=== PATIENT | female | born 1990 | race African-American/Black ===

== ENCOUNTER 2022-12-31 04:37 | Day surgery (SDC) | payer OTHER ==
[2022-12-29 15:42] VITALS: BMI 25.0
[2022-12-31] MEDS ORDERED: GENTAMICIN SO4 80 MG/2 ML VIAL ONE (14:01)
[2022-12-31] MEDS ORDERED: LIDOCAINE HCL 1%, 10 MG/ML (20ML VIAL) ONE ×2 (14:01→16:23)
[2022-12-31] MEDS ORDERED: DEXAMETHASONE SOD PHOSPHATE 4 MG/1 ML VIAL ONE ×2 (14:03→16:10)
[2022-12-31] MEDS ORDERED: PROPOFOL 20 ML ONE ×3 (15:43→16:23)
[2022-12-31] MEDS ORDERED: MIDAZOLAM HCL 2 MG/2 ML SINGLE DOSE VIAL ONE (15:43)
[2022-12-31] MEDS ORDERED: ceFAZolin SODIUM 1 GM VIAL IVPB ONE (16:03)
[2022-12-31] MEDS ORDERED: ceFAZolin SODIUM 1 GM VIAL ONE ×2 (16:03)
[2022-12-31] MEDS ORDERED: ONDANSETRON 4 MG/2 ML VIAL ONE (16:10)
[2022-12-31] MEDS ORDERED: LIDOCAINE HCL 1%, 10 MG/ML (20ML VIAL) INF ONE (17:08)
[2022-12-31] MEDS ORDERED: BUPIVACAINE HCL/PF 0.5% (5MG/ML) 10 ML VIAL IJ ONE (17:08)
[2022-12-31] MEDS ORDERED: ACETAMINOPHEN 1000 MG/100 ML BAG IVPB ONE (17:13)
[2022-12-31] MEDS ORDERED: oxyCODONE HCL 5 MG TABLET PO PRN ×2 (17:13→18:57)
[2022-12-31] MEDS ORDERED: ACETAMINOPHEN 325 MG TABLET (FP) PO PRN (17:13)
[2022-12-31] MEDS ORDERED: ONDANSETRON 4 MG/2 ML VIAL IVPUSH PRN (17:13)
[2022-12-31] MEDS ORDERED: LACTATED RINGERS SOLUTION 1,000 ML IV SCH (17:15)
[2022-12-31] MEDS ORDERED: oxyCODONE HCL 5 MG TABLET ONE (19:01)
[2022-12-31 19:08] VITALS: RESP 18
[2022-12-31 19:35] VITALS: BP 126/78; PULSE 80; TEMP 98.7
== END 2022-12-31 19:25 | disposition home or self-care (01) ==
LOC: JASU-SURG 04:37
PROVIDERS: ATTEND Podiatrist Foot & Ankle Surgery
PROC: 0SRP0JZ Replacement of Right Toe Phalangeal Joint with Synthetic Substitute, Open Approach (ICD-10-PCS; 2022-12-31)
PROC: 0SRQ0JZ Replacement of Left Toe Phalangeal Joint with Synthetic Substitute, Open Approach (ICD-10-PCS; principal; 2022-12-31 15:00)
DX: M20.42 Other hammer toe(s) (acquired), left foot (principal); M20.41 Other hammer toe(s) (acquired), right foot
CPT/HCPCS: 76000-TC-FY; 81025; 88305-TC; 88311-TC; 94760

== ENCOUNTER 2023-01-28 13:24 | Day surgery (SDC) | payer OTHER ==
[2023-01-26 16:58] VITALS: BMI 25.0
[2023-01-28] MEDS ORDERED: LIDOCAINE HCL 1%, 10 MG/ML (20ML VIAL) ONE (14:02)
[2023-01-28] MEDS ORDERED: BUPIVACAINE HCL/PF 0.25% (2.5MG/ML) 10 ML VIAL ONE (14:02)
[2023-01-28] MEDS ORDERED: LIDOCAINE HCL 2% (20ML MULTI-DOSE VIAL) ONE (14:02)
[2023-01-28] MEDS ORDERED: BUPIVACAINE HCL/PF 2.5 MG/ML - 30 ML VIAL IJ ONE (14:03)
[2023-01-28] MEDS ORDERED: MIDAZOLAM HCL 2 MG/2 ML SINGLE DOSE VIAL ONE (14:26)
[2023-01-28] MEDS ORDERED: PROPOFOL 60 ML ONE (14:40)
[2023-01-28] MEDS ORDERED: SODIUM CHLORIDE 0.9% P/F 10 ML VIAL IJ ONE (14:41)
[2023-01-28] MEDS ORDERED: ceFAZolin SODIUM 1 GM VIAL ONE (14:41)
[2023-01-28] MEDS ORDERED: LIDOCAINE HCL/PF 2% SDV 5ML VIAL ONE (14:41)
[2023-01-28] MEDS ORDERED: ONDANSETRON 4 MG/2 ML VIAL ONE ×2 (14:49→16:20)
[2023-01-28] MEDS ORDERED: DEXAMETHASONE SOD PHOSPHATE 4 MG/1 ML VIAL ONE (14:49)
[2023-01-28] MEDS ORDERED: KETOROLAC TROMETHAMINE 30 MG/1 ML VIAL ONE (14:49)
[2023-01-28] MEDS ORDERED: ACETAMINOPHEN INJECTION 100 ML IVPB ONE (15:12)
[2023-01-28] MEDS ORDERED: PROPOFOL 20 ML ONE (15:39)
[2023-01-28] MEDS ORDERED: oxyCODONE HCL 5 MG TABLET PO PRN (16:07)
[2023-01-28] MEDS ORDERED: PROMETHAZINE HCL 25 MG/1 ML VIAL IVPB PRN (16:07)
[2023-01-28] MEDS ORDERED: ONDANSETRON 4 MG/2 ML VIAL IVPUSH PRN (16:07)
[2023-01-28] MEDS ORDERED: LACTATED RINGERS SOLUTION 1,000 ML IV SCH (16:15)
[2023-01-28] MEDS ORDERED: FENTANYL CITRATE/PF 50 MCG/ML VIAL ONE (16:19)
[2023-01-28 16:43] VITALS: PULSE 69; RESP 19
[2023-01-28 17:15] VITALS: BP 99/66; TEMP 97.4
== END 2023-01-28 18:17 | disposition home or self-care (01) ==
LOC: FASU 13:24
PROVIDERS: ATTEND Podiatrist Foot & Ankle Surgery
PROC: 0QSN04Z Reposition Right Metatarsal with Internal Fixation Device, Open Approach (ICD-10-PCS; 2023-01-28)
PROC: 0QSP04Z Reposition Left Metatarsal with Internal Fixation Device, Open Approach (ICD-10-PCS; principal; 2023-01-28 14:58)
DX: M20.11 Hallux valgus (acquired), right foot (principal); M20.12 Hallux valgus (acquired), left foot
CPT/HCPCS: 28299; C1713; 73630-TC-LT; 73630-TC-RT-FY; 81025